=== PATIENT | male | born 1990 | race Caucasian/White ===

== ENCOUNTER 2018-02-16 14:15 | Emergency (ER) | payer OTHER ==
[~2018-02-16] VITALS: Ht 175.3 cm; Wt 83.9 kg
[2018-02-16] MEDS ORDERED: PERCOCET 5-3251 EACH PO (14:29)
[2018-02-16] MEDS ORDERED: NORCO 5-325 TA1 EACH PO (16:59)
== END 2018-02-16 17:17 | disposition home or self-care (01) ==
LOC: ED 14:15
PROC: 2W3MX1Z Immobilization of Left Lower Extremity using Splint (ICD-10-PCS; principal; 2018-02-16)
DX: S92.015A Nondisplaced fracture of body of left calcaneus, initial encounter for closed fracture (principal); F17.200 Nicotine dependence, unspecified, uncomplicated; X58.XXXA Exposure to other specified factors, initial encounter
CPT/HCPCS: 29515; 73630; 73700; 99284